=== PATIENT | female | born 1945 | race African-American/Black ===

== ENCOUNTER 2019-02-18 15:34 | Inpatient (IN) ==
[2019-02-18 17:07] LABS: Albumin 3.1 G/DL (3.4-5.0); Bilirubin,Total 0.4 MG/DL (0.2-1.0); Calcium 9.3 MG/DL (8.5-10.1); Osmolality,Calculated 268.4 MOS/KG (273-304); Total Protein 9.1 G/DL (6.4-8.3)
[2019-02-18] MEDS ORDERED: LEVOFLOXACIN INJ 500 MG in PREMIX 1 EACH IV STA (18:18)
[2019-02-18 18:37] LABS: Basophils # 0.1 10*3/uL (0.0-0.2); Basophils % 0.5 % (0.0-0.8); Eosinophils # 0.1 10*3/uL (0.0-0.87); Eosinophils % 0.7 % (0.00-10.9); Hematocrit 46.7 VOL% (35.7-47.0); Immature Granulocytes % 0.5 %; Immature Granulocytes Absolute 0.07 #; Lymphocytes # 3.2 10*3/uL (1.4-4.0); Lymphocytes % 22.2 % (21.3-54.2); Mean Corpuscular HGB Conc 32.1 GM/DL (32-36); Monocytes % 9.7 % (1.7-12.7); Neutrophils % 66.4 % (38.7-73.9); Platelet Count 254 T/CUMM (130-400); Red Blood Count 5.56 MC/CUMM (3.8-5.5); Red Cell Distribution Width 13.9 % (9.3-17.3); White Blood Count 14.3 T/CUMM (4-12)
[2019-02-18] MEDS ORDERED: ACETAMINOPHEN 325 MG TABLET PO PRN (19:59)
[2019-02-18] MEDS ORDERED: GLUCAGON 1 MG VIAL IM PRN ×2 (19:59)
[2019-02-18] MEDS ORDERED: DEXTROSE 50% 25 GM/50 ML VIAL IV PRN (19:59)
[2019-02-18] MEDS ORDERED: ONDANSETRON 4 MG/2 ML VIAL IV PRN (19:59)
[2019-02-18] MEDS ORDERED: DEXTROSE 10% 250 ML BAG IV PRN (19:59)
[2019-02-18] MEDS: SODIUM CHLORIDE 0.9% 1,000 ML IV SCH (21:05)
[2019-02-18] MEDS: INSULIN LISPRO 100 UNIT/ML SUBCUT SCH (23:05)
[2019-02-19] MEDS: ALBUTEROL/IPRATROPIUM 3 ML NEB RESP TX SCH ×4 (00:20→18:30)
[2019-02-19 05:09] LABS: Basophils # 0.1 10*3/uL (0.0-0.2); Basophils % 0.5 % (0.0-0.8); Eosinophils # 0.1 10*3/uL (0.0-0.87); Eosinophils % 0.5 % (0.00-10.9); Hematocrit 40.5 VOL% (35.7-47.0); Hemoglobin 13.1 GM/DL (12.0-16.0); Immature Granulocytes % 0.5 %; Immature Granulocytes Absolute 0.08 #; Lymphocytes # 3.2 10*3/uL (1.4-4.0); Lymphocytes % 20.8 % (21.3-54.2); Mean Corpuscular HGB Conc 32.3 GM/DL (32-36); Monocytes % 10.9 % (1.7-12.7); Neutrophils % 66.8 % (38.7-73.9); Platelet Count 238 T/CUMM (130-400); Red Blood Count 4.82 MC/CUMM (3.8-5.5); Red Cell Distribution Width 13.8 % (9.3-17.3); White Blood Count 15.2 T/CUMM (4-12)
[2019-02-19] MEDS: SODIUM CHLORIDE 0.9% 1,000 ML IV SCH ×2 (05:34→15:38)
[2019-02-19 05:44] LABS: Calcium 8.9 MG/DL (8.5-10.1); Osmolality,Calculated 274.8 MOS/KG (273-304); Risk Ratio 2.28; VLDL CHOLESTEROL 16.2 MG/DL
[2019-02-19] MEDS: PANTOPRAZOLE 40 MG TABLET PO SCH (08:20)
[2019-02-19] MEDS: INSULIN LISPRO 100 UNIT/ML SUBCUT SCH ×4 (08:29→21:06)
[2019-02-19] MEDS ORDERED: guaiFENesin/DM ER 600-30 MG TABLET PO PRN (13:42)
[2019-02-19] MEDS ORDERED: ENOXAPARIN 40 MG/0.4 ML SYRINGE SUBCUT SCH (14:00)
[2019-02-19] MEDS ORDERED: LEVOFLOXACIN INJ 750 MG in PREMIX 1 EACH IV SCH (18:00)
[2019-02-19 18:56] LABS: Apearance,Urine CLEAR (Clear); Bilirubin,Urine Negative (Negative); Blood, Urine Negative (Negative); Glucose,Urine (UA) 50 mg/dL (Negative); Ketones,Urine Negative (Negative); Nitrite,Urine Negative (Negative); Protein,Urine Negative; RBC,Urine <1 /HPF (0-4); Urine Color Straw (Yellow); Urine Specific Gravity 1.011 (1.001-1.035); Urine Urobilinogen < 2.0 EU/DL (0.2-1.0); WBC,Urine <1 /HPF (0-6)
[2019-02-19] MEDS: METOPROLOL TARTRATE 25 MG TABLET PO SCH (21:05)
[2019-02-20] MEDS: ALBUTEROL/IPRATROPIUM 3 ML NEB RESP TX SCH ×2 (00:40→07:30)
[2019-02-20 05:29] LABS: Basophils % 0.3 % (0.0-0.8); Eosinophils # 0.2 10*3/uL (0.0-0.87); Eosinophils % 1.4 % (0.00-10.9); Hematocrit 36.8 VOL% (35.7-47.0); Immature Granulocytes % 0.3 %; Immature Granulocytes Absolute 0.04 #; Lymphocytes # 3.1 10*3/uL (1.4-4.0); Lymphocytes % 26.4 % (21.3-54.2); Mean Corpuscular HGB Conc 32.6 GM/DL (32-36); Mean Corpuscular Volume 83.6 FL (87-102); Mean Platelet Volume 10.2 FL (9.6-12.0); Neutrophils % 61.6 % (38.7-73.9); Platelet Count 253 T/CUMM (130-400); Red Cell Distribution Width 13.7 % (9.3-17.3); White Blood Count 11.9 T/CUMM (4-12)
[2019-02-20] MEDS ORDERED: LEVOTHYROXINE 88 MCG TABLET PO SCH (06:30)
[2019-02-20] MEDS: METOPROLOL TARTRATE 25 MG TABLET PO SCH (08:49)
[2019-02-20] MEDS: PANTOPRAZOLE 40 MG TABLET PO SCH (08:49)
[2019-02-20] MEDS: INSULIN LISPRO 100 UNIT/ML SUBCUT SCH (08:54)
[2019-02-20] MEDS ORDERED: EZETIMIBE 10 MG TABLET PO SCH (09:00)
[2019-02-20] MEDS ORDERED: SERTRALINE 25 MG TABLET PO SCH (09:00)
[2019-02-20 10:14] VITALS: BP 138/74
== END 2019-02-20 11:31 | disposition home or self-care (01) | DRG 194 ==
LOC: N.ED 15:34 → N.EDINP 19:59 → N.5E 20:32
PROVIDERS: ADMIT Internal Medicine; ATTEND Internal Medicine

== ENCOUNTER 2019-08-19 11:47 | Inpatient (IN) ==
[2019-08-19 12:32] LABS: Basophils # 0.1 10*3/uL (0.0-0.2); Basophils % 0.8 % (0.0-0.8); Eosinophils # 0.4 10*3/uL (0.0-0.87); Eosinophils % 3.7 % (0.00-10.9); Hematocrit 45.1 VOL% (35.7-47.0); Hemoglobin 14.1 GM/DL (12.0-16.0); Immature Granulocytes % 0.4 %; Immature Granulocytes Absolute 0.04 #; Lymphocytes # 3.7 10*3/uL (1.4-4.0); Lymphocytes % 33.2 % (21.3-54.2); Mean Corpuscular HGB Conc 31.3 GM/DL (32-36); Mean Corpuscular Volume 83.4 FL (87-102); Mean Platelet Volume 10.1 FL (9.6-12.0); Monocytes % 10.9 % (1.7-12.7); Platelet Count 312 T/CUMM (130-400); Red Blood Count 5.41 MC/CUMM (3.8-5.5); White Blood Count 11.1 T/CUMM (4-12)
[2019-08-19 12:52] LABS: Albumin 3.3 G/DL (3.4-5.0); Calcium 9.6 MG/DL (8.5-10.1); Osmolality,Calculated 270.1 MOS/KG (273-304); Total Protein 8.8 G/DL (6.4-8.3)
[2019-08-19] MEDS ORDERED: ONDANSETRON 4 MG/2 ML VIAL IV PRN (16:09)
[2019-08-19] MEDS ORDERED: NITROGLYCERIN SL 0.4 MG TABLET SL PRN (16:13)
[2019-08-19] MEDS ORDERED: GLUCAGON 1 MG VIAL IM PRN (16:17)
[2019-08-19] MEDS ORDERED: DEXTROSE 10% 250 ML BAG IV PRN (16:17)
[2019-08-19] MEDS: INSULIN LISPRO 100 UNIT/ML SUBCUT SCH ×2 (16:53→21:41)
[2019-08-19 17:54] LABS: Troponin I < 0.015 NG/ML (0.00-0.045)
[2019-08-19] MEDS: ACETAMINOPHEN 325 MG TABLET PO PRN (19:58)
[2019-08-19] MEDS: ALBUTEROL/IPRATROPIUM 3 ML NEB RESP TX SCH (20:50)
[2019-08-19 21:37] LABS: Troponin I < 0.015 NG/ML (0.00-0.045)
[2019-08-19] MEDS: METOPROLOL TARTRATE 25 MG TABLET PO SCH (21:40)
[2019-08-19] MEDS: RANOLAZINE 500 MG TABLET PO SCH (21:41)
[2019-08-19] MEDS ORDERED: MORPHINE 4 MG/1 ML VIAL IV ONE (22:07)
[2019-08-20 00:55] LABS: Apearance,Urine CLEAR (Clear); Bilirubin,Urine Negative (Negative); Blood, Urine Negative (Negative); Glucose,Urine (UA) Negative (Negative); Ketones,Urine Negative (Negative); Nitrite,Urine Negative (Negative); Protein,Urine 30 MG/DL; RBC,Urine 2 /HPF (0-4); Squamous Epithelial Cell,Urine Occasional /HPF (0-10); Urine Color Yellow (Yellow); Urine Specific Gravity > 1.060 (1.001-1.035); WBC,Urine 3 /HPF (0-6)
[2019-08-20] MEDS: ALBUTEROL/IPRATROPIUM 3 ML NEB RESP TX SCH ×4 (01:48→20:40)
[2019-08-20] MEDS: ACETAMINOPHEN 325 MG TABLET PO PRN ×2 (03:05→08:33)
[2019-08-20 05:48] LABS: Risk Ratio 4.41; Thyroid Stimulating Hormone 0.128 uIU/ml (0.358-3.74); VLDL CHOLESTEROL 28.6 MG/DL
[2019-08-20 06:19] LABS: Basophils # 0.1 10*3/uL (0.0-0.2); Basophils % 0.6 % (0.0-0.8); Eosinophils # 0.4 10*3/uL (0.0-0.87); Eosinophils % 3.4 % (0.00-10.9); Hematocrit 39.9 VOL% (35.7-47.0); Hemoglobin 13.1 GM/DL (12.0-16.0); Immature Granulocytes % 0.2 %; Immature Granulocytes Absolute 0.02 #; Lymphocytes # 3.8 10*3/uL (1.4-4.0); Lymphocytes % 33.8 % (21.3-54.2); Mean Corpuscular HGB Conc 32.8 GM/DL (32-36); Mean Corpuscular Volume 80.4 FL (87-102); Mean Platelet Volume 10.7 FL (9.6-12.0); Monocytes % 13.5 % (1.7-12.7); Neutrophils % 48.5 % (38.7-73.9); Platelet Count 275 T/CUMM (130-400); Red Blood Count 4.96 MC/CUMM (3.8-5.5); Red Cell Distribution Width 14.2 % (9.3-17.3); White Blood Count 11.1 T/CUMM (4-12)
[2019-08-20 06:23] LABS: Osmolality,Calculated 270.2 MOS/KG (273-304)
[2019-08-20] MEDS: LEVOTHYROXINE 50 MCG TABLET PO SCH (06:33)
[2019-08-20] MEDS: RANOLAZINE 500 MG TABLET PO SCH ×2 (08:30→21:00)
[2019-08-20] MEDS: LOSARTAN 50 MG TABLET PO SCH (08:31)
[2019-08-20] MEDS: ISOSORBIDE MONONITRATE 60 MG TABLET PO SCH (08:31)
[2019-08-20] MEDS: METOPROLOL TARTRATE 25 MG TABLET PO SCH (08:32)
[2019-08-20] MEDS: hydroCHLOROthiazide 25 MG TABLET PO SCH (08:32)
[2019-08-20] MEDS: SERTRALINE 25 MG TABLET PO SCH (08:33)
[2019-08-20] MEDS: ENOXAPARIN 40 MG/0.4 ML SYRINGE SUBCUT SCH (08:34)
[2019-08-20] MEDS: buPROPion XL 150 MG TABLET PO SCH (08:34)
[2019-08-20] MEDS: PANTOPRAZOLE 40 MG TABLET PO SCH (08:34)
[2019-08-20] MEDS: INSULIN LISPRO 100 UNIT/ML SUBCUT SCH ×4 (09:11→21:01)
[2019-08-20] MEDS: ROSUVASTATIN 20 MG TABLET PO SCH (09:50)
[2019-08-20] MEDS: DORNASE ALFA 2.5 MG/2.5 ML VIAL RESP TX SCH ×2 (11:00→20:47)
[2019-08-20] MEDS: CYANOCOBALAMIN 500 MCG TABLET PO SCH (13:15)
[2019-08-20] MEDS: MEROPENEM 500 MG in SODIUM CHLORIDE 0.9% 100 ML IV SCH ×3 (14:56→23:34)
[2019-08-20] MEDS: METOPROLOL TARTRATE 50 MG TABLET PO SCH (21:00)
[2019-08-21] MEDS: ACETAMINOPHEN 325 MG TABLET PO PRN ×2 (00:10→15:31)
[2019-08-21] MEDS: ALBUTEROL/IPRATROPIUM 3 ML NEB RESP TX SCH ×4 (02:20→20:16)
[2019-08-21] MEDS: MEROPENEM 500 MG in SODIUM CHLORIDE 0.9% 100 ML IV SCH ×3 (05:45→21:43)
[2019-08-21] MEDS: LEVOTHYROXINE 50 MCG TABLET PO SCH (06:32)
[2019-08-21] MEDS: DORNASE ALFA 2.5 MG/2.5 ML VIAL RESP TX SCH ×2 (08:07→20:16)
[2019-08-21] MEDS: CYANOCOBALAMIN 500 MCG TABLET PO SCH (08:38)
[2019-08-21] MEDS: INSULIN LISPRO 100 UNIT/ML SUBCUT SCH ×4 (08:38→21:45)
[2019-08-21] MEDS: PANTOPRAZOLE 40 MG TABLET PO SCH (08:38)
[2019-08-21] MEDS: SERTRALINE 25 MG TABLET PO SCH (08:39)
[2019-08-21] MEDS: ROSUVASTATIN 20 MG TABLET PO SCH (08:39)
[2019-08-21] MEDS: METOPROLOL TARTRATE 50 MG TABLET PO SCH ×2 (08:39→21:45)
[2019-08-21] MEDS: ISOSORBIDE MONONITRATE 60 MG TABLET PO SCH (08:39)
[2019-08-21] MEDS: hydroCHLOROthiazide 25 MG TABLET PO SCH (08:39)
[2019-08-21] MEDS: RANOLAZINE 500 MG TABLET PO SCH ×2 (08:39→21:44)
[2019-08-21] MEDS: LOSARTAN 50 MG TABLET PO SCH (08:39)
[2019-08-21] MEDS: buPROPion XL 150 MG TABLET PO SCH (08:39)
[2019-08-21] MEDS: ENOXAPARIN 40 MG/0.4 ML SYRINGE SUBCUT SCH (08:44)
[2019-08-21] MEDS ORDERED: MAGNESIUM HYDROXIDE SUSP 30 ML UDCUP PO PRN (10:27)
[2019-08-21] MEDS ORDERED: MAGNESIUM HYDROXIDE SUSP 30 ML UDCUP PO ONE (10:27)
[2019-08-21] MEDS ORDERED: ALUM/MAG/SIMETH/LIDO VISC 1:1 30 ML BOTTLE PO ONE (11:43)
[2019-08-22] MEDS: MEROPENEM 500 MG in SODIUM CHLORIDE 0.9% 100 ML IV SCH ×5 (00:40→23:57)
[2019-08-22] MEDS: ALBUTEROL/IPRATROPIUM 3 ML NEB RESP TX SCH ×4 (01:15→20:10)
[2019-08-22 04:28] LABS: Basophils # 0.1 10*3/uL (0.0-0.2); Basophils % 0.7 % (0.0-0.8); Eosinophils # 0.2 10*3/uL (0.0-0.87); Eosinophils % 2.2 % (0.00-10.9); Hematocrit 36.5 VOL% (35.7-47.0); Hemoglobin 11.6 GM/DL (12.0-16.0); Immature Granulocytes % 0.3 %; Immature Granulocytes Absolute 0.03 #; Lymphocytes # 2.9 10*3/uL (1.4-4.0); Lymphocytes % 29.8 % (21.3-54.2); Mean Corpuscular HGB Conc 31.8 GM/DL (32-36); Mean Corpuscular Volume 82.2 FL (87-102); Mean Platelet Volume 10.4 FL (9.6-12.0); Platelet Count 300 T/CUMM (130-400); Red Blood Count 4.44 MC/CUMM (3.8-5.5); Red Cell Distribution Width 13.9 % (9.3-17.3); White Blood Count 9.6 T/CUMM (4-12)
[2019-08-22 05:09] LABS: PT Patient Result 11.1 SECS (9.6-12.2)
[2019-08-22 05:09] LABS: Albumin 2.5 G/DL (3.4-5.0); Bilirubin,Total 1.5 MG/DL (0.2-1.0); Calcium 8.9 MG/DL (8.5-10.1); Osmolality,Calculated 272.4 MOS/KG (273-304); Total Protein 7.7 G/DL (6.4-8.3)
[2019-08-22] MEDS: LEVOTHYROXINE 50 MCG TABLET PO SCH (06:04)
[2019-08-22] MEDS: DORNASE ALFA 2.5 MG/2.5 ML VIAL RESP TX SCH ×2 (06:40→20:15)
[2019-08-22] MEDS: INSULIN LISPRO 100 UNIT/ML SUBCUT SCH ×4 (08:29→21:25)
[2019-08-22] MEDS ORDERED: DIAZEPAM 5 MG TABLET PO ONE (09:45)
[2019-08-22] MEDS ORDERED: POTASSIUM CHLORIDE RIDER 10 MEQ in PREMIX 1 EACH IV PRN (10:42)
[2019-08-22] MEDS: SERTRALINE 25 MG TABLET PO SCH (10:48)
[2019-08-22] MEDS: RANOLAZINE 500 MG TABLET PO SCH ×2 (10:48→21:24)
[2019-08-22] MEDS: METOPROLOL TARTRATE 50 MG TABLET PO SCH ×2 (10:48→21:20)
[2019-08-22] MEDS: CYANOCOBALAMIN 500 MCG TABLET PO SCH (10:48)
[2019-08-22] MEDS: ISOSORBIDE MONONITRATE 60 MG TABLET PO SCH (10:49)
[2019-08-22] MEDS: LOSARTAN 50 MG TABLET PO SCH (10:49)
[2019-08-22] MEDS: hydroCHLOROthiazide 25 MG TABLET PO SCH (10:49)
[2019-08-22] MEDS: PANTOPRAZOLE 40 MG TABLET PO SCH (10:49)
[2019-08-22] MEDS: ROSUVASTATIN 20 MG TABLET PO SCH (10:49)
[2019-08-22] MEDS: buPROPion XL 150 MG TABLET PO SCH (10:50)
[2019-08-23] MEDS: ALBUTEROL/IPRATROPIUM 3 ML NEB RESP TX SCH ×4 (01:11→19:29)
[2019-08-23 05:00] LABS: Basophils # 0.1 10*3/uL (0.0-0.2); Basophils % 0.7 % (0.0-0.8); Eosinophils # 0.3 10*3/uL (0.0-0.87); Eosinophils % 3.2 % (0.00-10.9); Hematocrit 36.9 VOL% (35.7-47.0); Hemoglobin 11.6 GM/DL (12.0-16.0); Immature Granulocytes % 0.2 %; Immature Granulocytes Absolute 0.02 #; Lymphocytes # 2.8 10*3/uL (1.4-4.0); Lymphocytes % 31.5 % (21.3-54.2); Mean Corpuscular HGB Conc 31.4 GM/DL (32-36); Mean Corpuscular Volume 82.4 FL (87-102); Mean Platelet Volume 10.4 FL (9.6-12.0); Monocytes % 9.6 % (1.7-12.7); Neutrophils % 54.8 % (38.7-73.9); Platelet Count 306 T/CUMM (130-400); Red Blood Count 4.48 MC/CUMM (3.8-5.5); Red Cell Distribution Width 13.8 % (9.3-17.3); White Blood Count 8.8 T/CUMM (4-12)
[2019-08-23 05:35] LABS: Albumin 2.4 G/DL (3.4-5.0); Bilirubin,Total 0.6 MG/DL (0.2-1.0); Calcium 8.8 MG/DL (8.5-10.1); Osmolality,Calculated 274.2 MOS/KG (273-304); Total Protein 7.3 G/DL (6.4-8.3)
[2019-08-23 05:48] LABS: PT Patient Result 10.8 SECS (9.6-12.2)
[2019-08-23] MEDS: MEROPENEM 500 MG in SODIUM CHLORIDE 0.9% 100 ML IV SCH ×3 (05:51→18:13)
[2019-08-23] MEDS: LEVOTHYROXINE 50 MCG TABLET PO SCH (06:19)
[2019-08-23] MEDS ORDERED: MIDAZOLAM 2 MG/2 ML VIAL ONE (07:32)
[2019-08-23] MEDS ORDERED: diphenhydrAMINE 50 MG/1 ML VIAL IM ONE (08:00)
[2019-08-23] MEDS ORDERED: BENZONATATE 100 MG CAPSULE PO ONE (08:00)
[2019-08-23] MEDS ORDERED: MEPERIDINE 50 MG/1 ML VIAL IM ONE (08:00)
[2019-08-23] MEDS: INSULIN LISPRO 100 UNIT/ML SUBCUT SCH ×4 (08:14→22:57)
[2019-08-23] MEDS ORDERED: LIDOCAINE 2% 20 ML VIAL RESP TX ONE (08:30)
[2019-08-23] MEDS ORDERED: LIDOCAINE 1% 20 ML VIAL MISC INJ ONE (08:30)
[2019-08-23] MEDS ORDERED: LIDOCAINE 2% VISCOUS 100 ML BOTTLE SWISH/SPIT ONE (08:30)
[2019-08-23] MEDS: DORNASE ALFA 2.5 MG/2.5 ML VIAL RESP TX SCH ×2 (08:51→19:29)
[2019-08-23] MEDS: buPROPion XL 150 MG TABLET PO SCH (10:19)
[2019-08-23] MEDS: SERTRALINE 25 MG TABLET PO SCH (10:19)
[2019-08-23] MEDS: CYANOCOBALAMIN 500 MCG TABLET PO SCH (10:19)
[2019-08-23] MEDS: ISOSORBIDE MONONITRATE 60 MG TABLET PO SCH (12:04)
[2019-08-23] MEDS: ROSUVASTATIN 20 MG TABLET PO SCH (12:04)
[2019-08-23] MEDS: METOPROLOL TARTRATE 50 MG TABLET PO SCH ×2 (12:04→22:17)
[2019-08-23] MEDS: hydroCHLOROthiazide 25 MG TABLET PO SCH (12:04)
[2019-08-23] MEDS: LOSARTAN 50 MG TABLET PO SCH (12:04)
[2019-08-23] MEDS: RANOLAZINE 500 MG TABLET PO SCH ×2 (12:04→22:16)
[2019-08-23] MEDS: PANTOPRAZOLE 40 MG TABLET PO SCH (12:05)
[2019-08-23] MEDS: FLUCONAZOLE INJ 100 MG in IV BAG 1 EACH IV SCH (12:48)
[2019-08-24] MEDS: MEROPENEM 500 MG in SODIUM CHLORIDE 0.9% 100 ML IV SCH ×4 (00:11→17:26)
[2019-08-24] MEDS: ALBUTEROL/IPRATROPIUM 3 ML NEB RESP TX SCH ×4 (00:28→20:05)
[2019-08-24] MEDS: DORNASE ALFA 2.5 MG/2.5 ML VIAL RESP TX SCH ×2 (07:50→20:05)
[2019-08-24] MEDS: INSULIN LISPRO 100 UNIT/ML SUBCUT SCH ×4 (09:36→22:39)
[2019-08-24] MEDS: CYANOCOBALAMIN 500 MCG TABLET PO SCH (09:41)
[2019-08-24] MEDS: PANTOPRAZOLE 40 MG TABLET PO SCH (09:41)
[2019-08-24] MEDS: METOPROLOL TARTRATE 50 MG TABLET PO SCH ×2 (09:41→22:06)
[2019-08-24] MEDS: SERTRALINE 25 MG TABLET PO SCH (09:42)
[2019-08-24] MEDS: hydroCHLOROthiazide 25 MG TABLET PO SCH (09:42)
[2019-08-24] MEDS: LEVOTHYROXINE 50 MCG TABLET PO SCH (09:42)
[2019-08-24] MEDS: ROSUVASTATIN 20 MG TABLET PO SCH (09:42)
[2019-08-24] MEDS: LOSARTAN 50 MG TABLET PO SCH (09:42)
[2019-08-24] MEDS: buPROPion XL 150 MG TABLET PO SCH (09:42)
[2019-08-24] MEDS: RANOLAZINE 500 MG TABLET PO SCH ×2 (09:42→22:08)
[2019-08-24] MEDS: ISOSORBIDE MONONITRATE 60 MG TABLET PO SCH (09:42)
[2019-08-24] MEDS ORDERED: SODIUM CHLORIDE 0.9% 500 ML IV ONE (13:46)
[2019-08-24] MEDS: FLUCONAZOLE INJ 100 MG in IV BAG 1 EACH IV SCH (15:10)
[2019-08-24] MEDS: ACETAMINOPHEN 325 MG TABLET PO PRN (19:12)
[2019-08-25] MEDS: MEROPENEM 500 MG in SODIUM CHLORIDE 0.9% 100 ML IV SCH ×5 (01:21→23:24)
[2019-08-25] MEDS: ALBUTEROL/IPRATROPIUM 3 ML NEB RESP TX SCH ×4 (01:36→20:05)
[2019-08-25] MEDS: LEVOTHYROXINE 50 MCG TABLET PO SCH (07:23)
[2019-08-25] MEDS: DORNASE ALFA 2.5 MG/2.5 ML VIAL RESP TX SCH ×2 (08:07→20:13)
[2019-08-25] MEDS: INSULIN LISPRO 100 UNIT/ML SUBCUT SCH ×4 (08:32→21:08)
[2019-08-25] MEDS: ISOSORBIDE MONONITRATE 60 MG TABLET PO SCH (08:35)
[2019-08-25] MEDS: CYANOCOBALAMIN 500 MCG TABLET PO SCH (08:35)
[2019-08-25] MEDS: RANOLAZINE 500 MG TABLET PO SCH ×2 (08:35→21:13)
[2019-08-25] MEDS: METOPROLOL TARTRATE 50 MG TABLET PO SCH ×2 (08:36→21:13)
[2019-08-25] MEDS: hydroCHLOROthiazide 25 MG TABLET PO SCH (08:36)
[2019-08-25] MEDS: PANTOPRAZOLE 40 MG TABLET PO SCH (08:36)
[2019-08-25] MEDS: ROSUVASTATIN 20 MG TABLET PO SCH (08:36)
[2019-08-25] MEDS: SERTRALINE 25 MG TABLET PO SCH (08:36)
[2019-08-25] MEDS: buPROPion XL 150 MG TABLET PO SCH (08:36)
[2019-08-25] MEDS: FLUCONAZOLE INJ 100 MG in IV BAG 1 EACH IV SCH (12:32)
[2019-08-26] MEDS: ALBUTEROL/IPRATROPIUM 3 ML NEB RESP TX SCH ×4 (00:20→21:14)
[2019-08-26 05:05] LABS: Basophils # 0.1 10*3/uL (0.0-0.2); Basophils % 0.5 % (0.0-0.8); Eosinophils # 0.6 10*3/uL (0.0-0.87); Eosinophils % 6.5 % (0.00-10.9); Hemoglobin 11.4 GM/DL (12.0-16.0); Immature Granulocytes % 0.4 %; Immature Granulocytes Absolute 0.04 #; Lymphocytes # 3.4 10*3/uL (1.4-4.0); Lymphocytes % 35.8 % (21.3-54.2); Mean Corpuscular HGB Conc 30.8 GM/DL (32-36); Mean Corpuscular Volume 85.1 FL (87-102); Mean Platelet Volume 9.5 FL (9.6-12.0); Monocytes % 9.1 % (1.7-12.7); Neutrophils % 47.7 % (38.7-73.9); Platelet Count 327 T/CUMM (130-400); Red Blood Count 4.35 MC/CUMM (3.8-5.5); White Blood Count 9.5 T/CUMM (4-12)
[2019-08-26 05:17] LABS: Calcium 9.4 MG/DL (8.5-10.1)
[2019-08-26] MEDS: MEROPENEM 500 MG in SODIUM CHLORIDE 0.9% 100 ML IV SCH ×3 (06:18→17:58)
[2019-08-26] MEDS: DORNASE ALFA 2.5 MG/2.5 ML VIAL RESP TX SCH ×2 (07:52→21:14)
[2019-08-26] MEDS: buPROPion XL 150 MG TABLET PO SCH (08:56)
[2019-08-26] MEDS: hydroCHLOROthiazide 25 MG TABLET PO SCH (08:57)
[2019-08-26] MEDS: ROSUVASTATIN 20 MG TABLET PO SCH (08:57)
[2019-08-26] MEDS: ISOSORBIDE MONONITRATE 60 MG TABLET PO SCH (08:58)
[2019-08-26] MEDS: RANOLAZINE 500 MG TABLET PO SCH ×2 (08:58→23:04)
[2019-08-26] MEDS: METOPROLOL TARTRATE 50 MG TABLET PO SCH ×2 (08:58→23:03)
[2019-08-26] MEDS: SERTRALINE 25 MG TABLET PO SCH (08:58)
[2019-08-26] MEDS: PANTOPRAZOLE 40 MG TABLET PO SCH (08:59)
[2019-08-26] MEDS: CYANOCOBALAMIN 500 MCG TABLET PO SCH (08:59)
[2019-08-26] MEDS: LEVOTHYROXINE 50 MCG TABLET PO SCH (08:59)
[2019-08-26] MEDS: LOSARTAN 50 MG TABLET PO SCH (09:00)
[2019-08-26] MEDS: INSULIN LISPRO 100 UNIT/ML SUBCUT SCH ×4 (09:00→23:03)
[2019-08-26] MEDS: FLUCONAZOLE INJ 100 MG in IV BAG 1 EACH IV SCH (13:02)
[2019-08-26 16:26] LABS: Apearance,Urine CLEAR (Clear); Bilirubin,Urine Negative (Negative); Blood, Urine Negative (Negative); Glucose,Urine (UA) Negative (Negative); Ketones,Urine Negative (Negative); Nitrite,Urine Negative (Negative); Protein,Urine Negative; Squamous Epithelial Cell,Urine Occasional /HPF (0-10); Urine Color Yellow (Yellow); Urine Specific Gravity 1.015 (1.001-1.035); Urine Urobilinogen < 2.0 EU/DL (0.2-1.0); WBC,Urine <1 /HPF (0-6)
[2019-08-27] MEDS: MEROPENEM 500 MG in SODIUM CHLORIDE 0.9% 100 ML IV SCH ×2 (00:54→06:58)
[2019-08-27] MEDS: ALBUTEROL/IPRATROPIUM 3 ML NEB RESP TX SCH ×3 (01:15→13:52)
[2019-08-27 05:13] LABS: Basophils # 0.1 10*3/uL (0.0-0.2); Basophils % 0.6 % (0.0-0.8); Eosinophils # 0.7 10*3/uL (0.0-0.87); Eosinophils % 8.6 % (0.00-10.9); Hematocrit 36.1 VOL% (35.7-47.0); Hemoglobin 11.5 GM/DL (12.0-16.0); Immature Granulocytes % 0.4 %; Immature Granulocytes Absolute 0.03 #; Lymphocytes # 3.2 10*3/uL (1.4-4.0); Mean Corpuscular HGB Conc 31.9 GM/DL (32-36); Mean Corpuscular Volume 81.3 FL (87-102); Mean Platelet Volume 10.2 FL (9.6-12.0); Monocytes % 12.2 % (1.7-12.7); Neutrophils % 39.2 % (38.7-73.9); Platelet Count 351 T/CUMM (130-400); Red Blood Count 4.44 MC/CUMM (3.8-5.5); White Blood Count 8.1 T/CUMM (4-12)
[2019-08-27 05:28] LABS: Calcium 9.1 MG/DL (8.5-10.1); Osmolality,Calculated 268.2 MOS/KG (273-304)
[2019-08-27] MEDS: LEVOTHYROXINE 50 MCG TABLET PO SCH (07:40)
[2019-08-27] MEDS: DORNASE ALFA 2.5 MG/2.5 ML VIAL RESP TX SCH (07:57)
[2019-08-27] MEDS: INSULIN LISPRO 100 UNIT/ML SUBCUT SCH ×2 (08:18→13:35)
[2019-08-27] MEDS: PANTOPRAZOLE 40 MG TABLET PO SCH (09:42)
[2019-08-27] MEDS: RANOLAZINE 500 MG TABLET PO SCH (09:42)
[2019-08-27] MEDS: LOSARTAN 50 MG TABLET PO SCH (09:42)
[2019-08-27] MEDS: ROSUVASTATIN 20 MG TABLET PO SCH (09:42)
[2019-08-27] MEDS: hydroCHLOROthiazide 25 MG TABLET PO SCH (09:42)
[2019-08-27] MEDS: buPROPion XL 150 MG TABLET PO SCH (09:43)
[2019-08-27] MEDS: ISOSORBIDE MONONITRATE 60 MG TABLET PO SCH (09:43)
[2019-08-27] MEDS: METOPROLOL TARTRATE 50 MG TABLET PO SCH (09:43)
[2019-08-27] MEDS: SERTRALINE 25 MG TABLET PO SCH (09:43)
[2019-08-27] MEDS: CYANOCOBALAMIN 500 MCG TABLET PO SCH (09:43)
[2019-08-27 12:01] VITALS: BP 126/67
== END 2019-08-27 14:35 | disposition home health service (06) | DRG 180 ==
LOC: N.ED 11:47 → N.EDINP 11:47 → N.2W 15:19 → SUATTDRO 08-20 13:43 → N.5E 08-23 14:21
PROVIDERS: ADMIT Internal Medicine; ATTEND Internal Medicine Geriatric Medicine

== ENCOUNTER 2020-04-21 11:18 | Inpatient (IN) ==
[2020-04-21] MEDS ORDERED: ASPIRIN 325 MG TABLET PO STA (12:29)
[2020-04-21 12:48] LABS: Basophils % 0.3 % (0.0-0.8); Eosinophils % 0.2 % (0.00-10.9); Hematocrit 42.5 VOL% (35.7-47.0); Hemoglobin 13.5 GM/DL (12.0-16.0); Immature Granulocytes % 0.3 %; Immature Granulocytes Absolute 0.03 #; Lymphocytes # 0.8 10*3/uL (1.4-4.0); Lymphocytes % 8.4 % (21.3-54.2); Mean Corpuscular HGB Conc 31.8 GM/DL (32-36); Mean Corpuscular Volume 82.2 FL (87-102); Mean Platelet Volume 9.8 FL (9.6-12.0); Monocytes % 7.9 % (1.7-12.7); Neutrophils % 82.9 % (38.7-73.9); Platelet Count 376 T/CUMM (130-400); Red Blood Count 5.17 MC/CUMM (3.8-5.5); Red Cell Distribution Width 15.2 % (9.3-17.3); White Blood Count 9.4 T/CUMM (4-12)
[2020-04-21 13:16] LABS: Albumin 2.4 G/DL (3.4-5.0); Bilirubin,Total 0.8 MG/DL (0.2-1.0); Calcium 10.2 MG/DL (8.5-10.1); Osmolality,Calculated 281.7 MOS/KG (273-304); Total Protein 6.9 G/DL (6.4-8.3)
[2020-04-21] MEDS ORDERED: LACTULOSE 20 GM/30 ML UDCUP PO PRN (15:17)
[2020-04-21] MEDS ORDERED: GLUCAGON 1 MG VIAL IM PRN (15:17)
[2020-04-21] MEDS ORDERED: MORPHINE 4 MG/1 ML VIAL IV PRN (15:17)
[2020-04-21] MEDS ORDERED: ONDANSETRON 4 MG/2 ML VIAL IV PRN (15:17)
[2020-04-21] MEDS ORDERED: DEXTROSE 50% 25 GM/50 ML VIAL IV PRN (15:17)
[2020-04-21] MEDS ORDERED: hydrALAZINE 20 MG/1 ML VIAL IV PRN (15:17)
[2020-04-21] MEDS ORDERED: ACETAMINOPHEN 325 MG TABLET PO PRN (15:17)
[2020-04-21] MEDS ORDERED: SODIUM CHLORIDE 0.9% 1,000 ML IV SCH (15:30)
[2020-04-21] MEDS ORDERED: NITROGLYCERIN SL 0.4 MG TABLET SL PRN (15:39)
[2020-04-21] MEDS ORDERED: predniSONE 10 MG TABLET PO SCH (16:00)
[2020-04-21] MEDS: fentaNYL 25 MCG/HR PATCH TRANSDERM SCH (17:02)
[2020-04-21] MEDS: INSULIN REGULAR 100 UNIT/ML SUBCUT SCH ×2 (17:56→20:47)
[2020-04-21] MEDS: methylPREDNISolone SOD SUC 40 MG/1 ML VIAL IV SCH (18:06)
[2020-04-21] MEDS: ENOXAPARIN 40 MG/0.4 ML SYRINGE SUBCUT SCH (18:06)
[2020-04-21] MEDS: PIPERACILLIN/TAZOBACTAM 3,375 MG in SODIUM CHLORIDE 0.9% 100 ML IV SCH (18:07)
[2020-04-21] MEDS: PANTOPRAZOLE 40 MG TABLET PO SCH (18:20)
[2020-04-21] MEDS: ALBUTEROL/IPRATROPIUM 3 ML NEB RESP TX SCH (20:01)
[2020-04-21] MEDS: INSULIN GLARGINE 100 UNIT/ML SUBCUT SCH (20:48)
[2020-04-22] MEDS: PIPERACILLIN/TAZOBACTAM 3,375 MG in SODIUM CHLORIDE 0.9% 100 ML IV SCH ×4 (00:06→23:40)
[2020-04-22] MEDS: ALBUTEROL/IPRATROPIUM 3 ML NEB RESP TX SCH ×4 (01:23→19:23)
[2020-04-22] MEDS: methylPREDNISolone SOD SUC 40 MG/1 ML VIAL IV SCH (05:38)
[2020-04-22 06:17] LABS: Basophils % 0.4 % (0.0-0.8); Hematocrit 36.3 VOL% (35.7-47.0); Hemoglobin 11.6 GM/DL (12.0-16.0); Immature Granulocytes % 0.1 %; Immature Granulocytes Absolute 0.01 #; Lymphocytes # 0.4 10*3/uL (1.4-4.0); Mean Corpuscular Volume 80.8 FL (87-102); Mean Platelet Volume 9.9 FL (9.6-12.0); Monocytes % 5.8 % (1.7-12.7); Neutrophils % 87.7 % (38.7-73.9); Platelet Count 315 T/CUMM (130-400); Red Blood Count 4.49 MC/CUMM (3.8-5.5); Red Cell Distribution Width 15.1 % (9.3-17.3); White Blood Count 7.4 T/CUMM (4-12)
[2020-04-22 06:43] LABS: Bilirubin,Total 0.5 MG/DL (0.2-1.0); Calcium 10.1 MG/DL (8.5-10.1); Osmolality,Calculated 285.7 MOS/KG (273-304); Risk Ratio 3.97; Thyroid Stimulating Hormone 0.058 uIU/ml (0.358-3.74)
[2020-04-22] MEDS: INSULIN REGULAR 100 UNIT/ML SUBCUT SCH ×4 (08:29→21:18)
[2020-04-22] MEDS: hydroCHLOROthiazide 25 MG TABLET PO SCH (08:31)
[2020-04-22] MEDS: SERTRALINE 25 MG TABLET PO SCH (08:31)
[2020-04-22] MEDS: buPROPion XL 150 MG TABLET PO SCH (08:32)
[2020-04-22] MEDS: LOSARTAN 50 MG TABLET PO SCH (08:32)
[2020-04-22] MEDS: PANTOPRAZOLE 40 MG TABLET PO SCH (08:32)
[2020-04-22] MEDS ORDERED: amLODIPine 5 MG TABLET PO ONE (09:09)
[2020-04-22 09:48] LABS: INR 1.1
[2020-04-22 10:08] LABS: Albumin 2.1 G/DL (3.4-5.0); Total Protein 7.4 G/DL (6.4-8.3)
[2020-04-22 15:33] LABS: Lymphocytes,Pleural Fluid 86 %; Monocytes,Pleural Fluid 7 %; Neutrophils,Pleural Fluid 7 %
[2020-04-22 15:35] LABS: RBC,Pleural Fluid 9787 T/CUMM
[2020-04-22 15:50] LABS: Amylase,Body Fluid 20 U/L; Glucose,Pleural Fluid 271 MG/DL; LDH,Body Fluid 529 U/L; Total Protein,Body Fluid 4.8 G/DL; Triglycerides,Body Fluid 40 MG/DL
[2020-04-22] MEDS: ENOXAPARIN 40 MG/0.4 ML SYRINGE SUBCUT SCH (17:20)
[2020-04-22] MEDS: INSULIN GLARGINE 100 UNIT/ML SUBCUT SCH (21:19)
[2020-04-23] MEDS: ALBUTEROL/IPRATROPIUM 3 ML NEB RESP TX SCH ×4 (00:20→20:15)
[2020-04-23] MEDS: PANTOPRAZOLE 40 MG TABLET PO SCH (08:23)
[2020-04-23] MEDS: predniSONE 10 MG TABLET PO SCH (08:23)
[2020-04-23] MEDS: hydroCHLOROthiazide 25 MG TABLET PO SCH (08:25)
[2020-04-23] MEDS: PIPERACILLIN/TAZOBACTAM 3,375 MG in SODIUM CHLORIDE 0.9% 100 ML IV SCH ×2 (08:25→17:14)
[2020-04-23] MEDS: SERTRALINE 25 MG TABLET PO SCH (08:27)
[2020-04-23] MEDS: LOSARTAN 50 MG TABLET PO SCH (08:27)
[2020-04-23] MEDS: buPROPion XL 150 MG TABLET PO SCH (08:27)
[2020-04-23] MEDS: INSULIN REGULAR 100 UNIT/ML SUBCUT SCH ×4 (09:11→21:42)
[2020-04-23] MEDS: ENOXAPARIN 40 MG/0.4 ML SYRINGE SUBCUT SCH (17:14)
[2020-04-23] MEDS: INSULIN GLARGINE 100 UNIT/ML SUBCUT SCH (21:41)
[2020-04-24] MEDS: PIPERACILLIN/TAZOBACTAM 3,375 MG in SODIUM CHLORIDE 0.9% 100 ML IV SCH ×2 (01:08→08:38)
[2020-04-24] MEDS: ALBUTEROL/IPRATROPIUM 3 ML NEB RESP TX SCH ×2 (01:46→07:50)
[2020-04-24 05:18] LABS: Basophils % 0.2 % (0.0-0.8); Eosinophils % 0.3 % (0.00-10.9); Hematocrit 31.9 VOL% (35.7-47.0); Hemoglobin 10.1 GM/DL (12.0-16.0); Immature Granulocytes % 0.5 %; Immature Granulocytes Absolute 0.05 #; Lymphocytes # 0.5 10*3/uL (1.4-4.0); Lymphocytes % 4.4 % (21.3-54.2); Mean Corpuscular HGB Conc 31.7 GM/DL (32-36); Mean Corpuscular Volume 82.2 FL (87-102); Mean Platelet Volume 9.9 FL (9.6-12.0); Monocytes % 10.8 % (1.7-12.7); Neutrophils % 83.8 % (38.7-73.9); Platelet Count 291 T/CUMM (130-400); Red Blood Count 3.88 MC/CUMM (3.8-5.5); Red Cell Distribution Width 15.4 % (9.3-17.3); White Blood Count 10.1 T/CUMM (4-12)
[2020-04-24 05:42] LABS: Osmolality,Calculated 280.3 MOS/KG (273-304)
[2020-04-24 06:16] LABS: Band Neutrophils 4 % (0-10); Eosinophils 1 % (0-10); Hypersegmented Neutrophil Few; Lymphocytes 5 % (20-55); Platelet Estimate Normal; Segmented Neutrophils 81 % (50-85); Total Cells Counted 100
[2020-04-24 06:17] LABS: Anisocytosis 1+; Poikilocytosis Slight; Target Cells Slight
[2020-04-24] MEDS: INSULIN REGULAR 100 UNIT/ML SUBCUT SCH ×2 (08:23→11:30)
[2020-04-24] MEDS: fentaNYL 25 MCG/HR PATCH TRANSDERM SCH (08:24)
[2020-04-24] MEDS: LOSARTAN 50 MG TABLET PO SCH (08:29)
[2020-04-24] MEDS: POTASSIUM CHLORIDE 20 MEQ TABLET PO SCH ×2 (08:29→11:33)
[2020-04-24] MEDS: SERTRALINE 25 MG TABLET PO SCH (08:29)
[2020-04-24] MEDS: buPROPion XL 150 MG TABLET PO SCH (08:29)
[2020-04-24] MEDS: predniSONE 10 MG TABLET PO SCH (08:29)
[2020-04-24] MEDS: hydroCHLOROthiazide 25 MG TABLET PO SCH (08:29)
[2020-04-24] MEDS: PANTOPRAZOLE 40 MG TABLET PO SCH (08:29)
[2020-04-24 11:46] VITALS: BP 113/65
[2020-04-24] MEDS ORDERED: HEPARIN LOCK FLUSH 500 UNIT/5 ML SYRINGE IV ONE (12:44)
== END 2020-04-24 13:30 | DRG 194 ==
LOC: N.EDINP 11:18 → N.ED 11:18 → N.4E 16:35 → SUATTDRO 04-23 16:36
PROVIDERS: ADMIT Internal Medicine; ATTEND Internal Medicine

== ENCOUNTER 2020-04-25 00:18 | Inpatient (IN) ==
[2020-04-25 00:49] LABS: Basophils % 0.2 % (0.0-0.8); Eosinophils % 0.3 % (0.00-10.9); Hematocrit 35.5 VOL% (35.7-47.0); Hemoglobin 11.3 GM/DL (12.0-16.0); Immature Granulocytes % 0.9 %; Immature Granulocytes Absolute 0.09 #; Lymphocytes # 0.7 10*3/uL (1.4-4.0); Lymphocytes % 6.4 % (21.3-54.2); Mean Corpuscular HGB Conc 31.8 GM/DL (32-36); Mean Corpuscular Volume 82.6 FL (87-102); Mean Platelet Volume 9.8 FL (9.6-12.0); Monocytes % 5.6 % (1.7-12.7); Neutrophils % 86.6 % (38.7-73.9); Platelet Count 292 T/CUMM (130-400); Red Cell Distribution Width 15.6 % (9.3-17.3); White Blood Count 10.5 T/CUMM (4-12)
[2020-04-25 00:57] LABS: INR 1.1; PT Patient Result 11.8 SECS (9.8-11.9); Partial Thromboplastin Time 31.1 SECS (23.9-33.8)
[2020-04-25 01:02] LABS: Albumin 2.2 G/DL (3.4-5.0); Bilirubin,Total 0.4 MG/DL (0.2-1.0); Osmolality,Calculated 272.8 MOS/KG (273-304); Total Protein 7.3 G/DL (6.4-8.3)
[2020-04-25 01:03] LABS: Bacteria,Urine Occasional /HPF (Few); Bilirubin,Urine Negative (Negative); Blood, Urine Negative (Negative); Glucose,Urine (UA) Negative (Negative); Ketones,Urine Negative (Negative); Mucus,Urine Occasional /LPF (Occasional); Nitrite,Urine Negative (Negative); Protein,Urine Negative; RBC,Urine 1 /HPF (0-4); Urine Appearance CLEAR (Clear); Urine Color Yellow (Yellow); Urine Specific Gravity 1.017 (1.001-1.035); WBC,Urine 1 /HPF (0-6)
[2020-04-25] MEDS ORDERED: DEXTROSE 50% 25 GM/50 ML VIAL IV STA (01:08)
[2020-04-25] MEDS ORDERED: DEXTROSE 50% 25 GM/50 ML SYRINGE IV ONE ×2 (01:09→03:14)
[2020-04-25] MEDS ORDERED: ALBUTEROL/IPRATROPIUM 3 ML NEB RESP TX PRN (02:41)
[2020-04-25] MEDS ORDERED: hydrALAZINE 20 MG/1 ML VIAL IV PRN (02:41)
[2020-04-25] MEDS ORDERED: diphenhydrAMINE CAP 25 MG CAPSULE PO PRN (02:41)
[2020-04-25] MEDS ORDERED: MORPHINE 4 MG/1 ML VIAL IV PRN (02:41)
[2020-04-25] MEDS ORDERED: guaiFENesin/DM ER 600-30 MG TABLET PO PRN (02:41)
[2020-04-25] MEDS ORDERED: NICOTINE 21 MG/24 HR PATCH TRANSDERM PRN (02:41)
[2020-04-25] MEDS: DEXTROSE 50% 25 GM/50 ML VIAL IV PRN ×5 (03:17→15:55)
[2020-04-25] MEDS: DEXT 5% NACL 0.9% KCL 20 MEQ 20 MEQ/1,000 ML BAG IV SCH ×2 (07:55→20:15)
[2020-04-25] MEDS ORDERED: GLUCAGON 1 MG VIAL IM PRN (16:23)
[2020-04-25] MEDS ORDERED: methylPREDNISolone SOD SUC 125 MG/2 ML VIAL IV ONE (16:42)
[2020-04-25] MEDS: HYDROCORTISONE 100 MG VIAL IV SCH ×2 (16:49→22:44)
[2020-04-25 18:35] LABS: Albumin 1.9 G/DL (3.4-5.0); Bilirubin,Total 0.5 MG/DL (0.2-1.0); Calcium 9.2 MG/DL (8.5-10.1); Osmolality,Calculated 275.8 MOS/KG (273-304); Total Protein 6.6 G/DL (6.4-8.3)
[2020-04-26] MEDS: HYDROCORTISONE 100 MG VIAL IV SCH ×4 (04:45→19:29)
[2020-04-26 06:13] LABS: Basophils % 0.1 % (0.0-0.8); Hematocrit 31.4 VOL% (35.7-47.0); Hemoglobin 9.8 GM/DL (12.0-16.0); Immature Granulocytes % 0.6 %; Immature Granulocytes Absolute 0.06 #; Lymphocytes # 0.3 10*3/uL (1.4-4.0); Lymphocytes % 2.8 % (21.3-54.2); Mean Corpuscular HGB Conc 31.2 GM/DL (32-36); Mean Corpuscular Volume 83.5 FL (87-102); Mean Platelet Volume 10.5 FL (9.6-12.0); Monocytes % 1.2 % (1.7-12.7); Neutrophils % 95.3 % (38.7-73.9); Platelet Count 255 T/CUMM (130-400); Red Blood Count 3.76 MC/CUMM (3.8-5.5); Red Cell Distribution Width 15.7 % (9.3-17.3); White Blood Count 10.5 T/CUMM (4-12)
[2020-04-26 06:38] LABS: Calcium 9.4 MG/DL (8.5-10.1)
[2020-04-26 07:18] LABS: Hypochromasia 1+; Lymphocytes 2 % (20-55); Microcytosis 1+; Segmented Neutrophils 96 % (50-85); Total Cells Counted 100
[2020-04-26 07:19] LABS: Acanthocytes Few; Ovalocytes Slight; Platelet Estimate Normal
[2020-04-26] MEDS: DEXT 5% NACL 0.9% KCL 20 MEQ 20 MEQ/1,000 ML BAG IV SCH (07:25)
[2020-04-26] MEDS ORDERED: tiZANidine 4 MG TABLET PO PRN (12:08)
[2020-04-26] MEDS: RANOLAZINE 500 MG TABLET PO SCH (12:30)
[2020-04-26] MEDS: buPROPion XL 150 MG TABLET PO SCH (12:30)
[2020-04-26] MEDS: GABAPENTIN 300 MG CAPSULE PO SCH (12:30)
[2020-04-26] MEDS: SERTRALINE 25 MG TABLET PO SCH (12:30)
[2020-04-26] MEDS: fentaNYL 25 MCG/HR PATCH TRANSDERM SCH (12:31)
[2020-04-26] MEDS: ALBUTEROL/IPRATROPIUM 3 ML NEB RESP TX SCH ×2 (13:40→19:48)
[2020-04-27] MEDS: ALBUTEROL/IPRATROPIUM 3 ML NEB RESP TX SCH ×4 (01:16→19:36)
[2020-04-27] MEDS: traMADol 50 MG TABLET PO PRN ×2 (03:46→20:23)
[2020-04-27] MEDS: HYDROCORTISONE 100 MG VIAL IV SCH ×3 (03:56→18:02)
[2020-04-27 06:53] LABS: Basophils % 0.1 % (0.0-0.8); Eosinophils % 0.2 % (0.00-10.9); Hematocrit 30.1 VOL% (35.7-47.0); Hemoglobin 9.3 GM/DL (12.0-16.0); Immature Granulocytes % 0.6 %; Immature Granulocytes Absolute 0.07 #; Lymphocytes # 0.3 10*3/uL (1.4-4.0); Lymphocytes % 2.9 % (21.3-54.2); Mean Corpuscular HGB Conc 30.9 GM/DL (32-36); Mean Corpuscular Volume 84.1 FL (87-102); Mean Platelet Volume 10.1 FL (9.6-12.0); Monocytes % 8.6 % (1.7-12.7); Neutrophils % 87.6 % (38.7-73.9); Platelet Count 271 T/CUMM (130-400); Red Blood Count 3.58 MC/CUMM (3.8-5.5); Red Cell Distribution Width 15.8 % (9.3-17.3); White Blood Count 11.6 T/CUMM (4-12)
[2020-04-27 07:00] LABS: Calcium 9.7 MG/DL (8.5-10.1); Osmolality,Calculated 284.1 MOS/KG (273-304)
[2020-04-27 07:11] LABS: Free T4 (Free Thyroxine) 1.23 NG/DL (0.76-1.46); Thyroid Stimulating Hormone 0.099 uIU/ml (0.358-3.74)
[2020-04-27 07:20] LABS: Hypochromasia 1+; Lymphocytes 3 % (20-55); Microcytosis 1+; Ovalocytes Slight; Platelet Estimate Adequate; Segmented Neutrophils 85 % (50-85); Total Cells Counted 100
[2020-04-27] MEDS: GABAPENTIN 300 MG CAPSULE PO SCH (09:34)
[2020-04-27] MEDS: SERTRALINE 25 MG TABLET PO SCH (09:35)
[2020-04-27] MEDS: RANOLAZINE 500 MG TABLET PO SCH (09:35)
[2020-04-27] MEDS: ROSUVASTATIN 20 MG TABLET PO SCH (09:35)
[2020-04-27 09:53] LABS: INR 1.1; PT Patient Result 11.3 SECS (9.8-11.9)
[2020-04-27 11:40] LABS: Amylase,Body Fluid 15 U/L; Glucose,Pleural Fluid 105 MG/DL; LDH,Body Fluid 584 U/L; Total Protein,Body Fluid 3.8 G/DL
[2020-04-27] MEDS: buPROPion XL 150 MG TABLET PO SCH (11:57)
[2020-04-27 12:11] LABS: Lymphocytes,Pleural Fluid 82 %; Neutrophils,Pleural Fluid 18 %
[2020-04-27 12:12] LABS: RBC,Pleural Fluid 13146 T/CUMM
[2020-04-28] MEDS: ALBUTEROL/IPRATROPIUM 3 ML NEB RESP TX SCH ×4 (00:26→20:01)
[2020-04-28] MEDS: HYDROCORTISONE 100 MG VIAL IV SCH ×3 (02:10→18:05)
[2020-04-28 06:03] LABS: Eosinophils % 0.2 % (0.00-10.9); Hematocrit 32.8 VOL% (35.7-47.0); Hemoglobin 10.2 GM/DL (12.0-16.0); Immature Granulocytes % 0.5 %; Immature Granulocytes Absolute 0.05 #; Lymphocytes # 0.4 10*3/uL (1.4-4.0); Mean Corpuscular HGB Conc 31.1 GM/DL (32-36); Mean Platelet Volume 10.1 FL (9.6-12.0); Monocytes % 9.7 % (1.7-12.7); Neutrophils % 85.6 % (38.7-73.9); Platelet Count 310 T/CUMM (130-400); Red Blood Count 3.95 MC/CUMM (3.8-5.5); Red Cell Distribution Width 15.9 % (9.3-17.3); White Blood Count 9.7 T/CUMM (4-12)
[2020-04-28 06:11] LABS: Calcium 10.2 MG/DL (8.5-10.1)
[2020-04-28] MEDS ORDERED: ceFAZolin 1,000 MG in SYRINGE 1 EACH IV ONE (06:30)
[2020-04-28 06:31] LABS: Lymphocytes 5 % (20-55); Microcytosis Slight; Platelet Estimate Normal; Segmented Neutrophils 90 % (50-85); Total Cells Counted 100
[2020-04-28] MEDS: RANOLAZINE 500 MG TABLET PO SCH (09:35)
[2020-04-28] MEDS: SERTRALINE 25 MG TABLET PO SCH (09:35)
[2020-04-28] MEDS: buPROPion XL 150 MG TABLET PO SCH (09:35)
[2020-04-28] MEDS: GABAPENTIN 300 MG CAPSULE PO SCH (09:35)
[2020-04-28] MEDS: ROSUVASTATIN 20 MG TABLET PO SCH (09:35)
[2020-04-28] MEDS ORDERED: LIDOCAINE 2% 5 ML VIAL ONE ×2 (11:07→12:34)
[2020-04-28] MEDS ORDERED: fentaNYL 100 MCG/2 ML VIAL ONE (11:07)
[2020-04-28] MEDS ORDERED: propofoL 200 MG/20 ML VIAL IV ONE (11:07)
[2020-04-28] MEDS ORDERED: BUPIVACAINE SPINAL 0.75% 2 ML AMP SPINAL ONE (11:08)
[2020-04-28] MEDS ORDERED: DEXMEDETOMIDINE 200 MCG/2 ML VIAL ONE (11:08)
[2020-04-28] MEDS ORDERED: MORPHINE 4 MG/1 ML VIAL IV PRN ×2 (11:37)
[2020-04-28] MEDS ORDERED: MAGNESIUM HYDROXIDE SUSP 30 ML UDCUP PO PRN (11:37)
[2020-04-28] MEDS ORDERED: ONDANSETRON 4 MG/2 ML VIAL ONE (11:46)
[2020-04-28] MEDS ORDERED: ROCURONIUM 50 MG/5 ML VIAL IV ONE (11:46)
[2020-04-28] MEDS ORDERED: PHENYLEPHRINE 1 MG/10 ML SYRINGE IV ONE (12:04)
[2020-04-28] MEDS ORDERED: NEOSTIGMINE 10 MG/10 ML VIAL ONE (12:15)
[2020-04-28] MEDS ORDERED: GLYCOPYRROLATE 0.4 MG/2 ML VIAL ONE ×2 (12:15)
[2020-04-28] MEDS ORDERED: ROPIVACAINE 0.5% 30 ML VIAL ONE (12:34)
[2020-04-28] MEDS: ceFAZolin 1,000 MG in SYRINGE 1 EACH IV SCH ×2 (16:33→23:57)
[2020-04-28] MEDS: LACTATED RINGERS 1,000 ML IV SCH (16:37)
[2020-04-28] MEDS: DOCUSATE SODIUM 100 MG CAPSULE PO SCH (20:56)
[2020-04-29] MEDS: LACTATED RINGERS 1,000 ML IV SCH ×2 (02:52→16:11)
[2020-04-29] MEDS: HYDROCORTISONE 100 MG VIAL IV SCH ×3 (04:35→21:01)
[2020-04-29 06:11] LABS: Basophils % 0.2 % (0.0-0.8); Eosinophils % 0.4 % (0.00-10.9); Hematocrit 28.5 VOL% (35.7-47.0); Immature Granulocytes % 0.3 %; Immature Granulocytes Absolute 0.03 #; Lymphocytes # 0.4 10*3/uL (1.4-4.0); Lymphocytes % 4.4 % (21.3-54.2); Mean Corpuscular HGB Conc 31.6 GM/DL (32-36); Mean Corpuscular Volume 82.8 FL (87-102); Mean Platelet Volume 10.4 FL (9.6-12.0); Monocytes % 10.6 % (1.7-12.7); Neutrophils % 84.1 % (38.7-73.9); Platelet Count 260 T/CUMM (130-400); Red Blood Count 3.44 MC/CUMM (3.8-5.5); Red Cell Distribution Width 15.9 % (9.3-17.3); White Blood Count 9.6 T/CUMM (4-12)
[2020-04-29] MEDS: FONDAPARINUX 2.5 MG/0.5 ML SYRINGE SUBCUT SCH (06:24)
[2020-04-29 06:25] LABS: Calcium 9.9 MG/DL (8.5-10.1); Osmolality,Calculated 281.3 MOS/KG (273-304)
[2020-04-29 06:45] LABS: Hypochromasia 1+; Lymphocytes 3 % (20-55); Microcytosis Slight; Ovalocytes Slight; Platelet Estimate Adequate; Segmented Neutrophils 88 % (50-85); Total Cells Counted 100
[2020-04-29] MEDS: ALBUTEROL/IPRATROPIUM 3 ML NEB RESP TX SCH ×4 (07:13→21:09)
[2020-04-29] MEDS: DOCUSATE SODIUM 100 MG CAPSULE PO SCH ×2 (10:00→20:57)
[2020-04-29] MEDS: RANOLAZINE 500 MG TABLET PO SCH (10:00)
[2020-04-29] MEDS: ROSUVASTATIN 20 MG TABLET PO SCH (10:00)
[2020-04-29] MEDS: SERTRALINE 25 MG TABLET PO SCH (10:01)
[2020-04-29] MEDS: POTASSIUM CHLORIDE 10 MEQ TABLET PO SCH (10:01)
[2020-04-29] MEDS: buPROPion XL 150 MG TABLET PO SCH (10:02)
[2020-04-29] MEDS: GABAPENTIN 300 MG CAPSULE PO SCH (10:02)
[2020-04-29] MEDS: fentaNYL 25 MCG/HR PATCH TRANSDERM SCH (10:22)
[2020-04-30] MEDS: ALBUTEROL/IPRATROPIUM 3 ML NEB RESP TX SCH ×4 (01:54→19:36)
[2020-04-30] MEDS: HYDROCORTISONE 100 MG VIAL IV SCH ×3 (04:20→21:30)
[2020-04-30 05:54] LABS: Basophils % 0.1 % (0.0-0.8); Eosinophils % 0.3 % (0.00-10.9); Hematocrit 27.8 VOL% (35.7-47.0); Hemoglobin 8.9 GM/DL (12.0-16.0); Immature Granulocytes % 0.5 %; Immature Granulocytes Absolute 0.05 #; Lymphocytes # 0.5 10*3/uL (1.4-4.0); Lymphocytes % 5.7 % (21.3-54.2); Mean Corpuscular Volume 81.8 FL (87-102); Monocytes % 9.5 % (1.7-12.7); Neutrophils % 83.9 % (38.7-73.9); Platelet Count 267 T/CUMM (130-400); White Blood Count 9.1 T/CUMM (4-12)
[2020-04-30 06:10] LABS: Calcium 9.6 MG/DL (8.5-10.1); Osmolality,Calculated 280.5 MOS/KG (273-304)
[2020-04-30] MEDS: buPROPion XL 150 MG TABLET PO SCH (09:27)
[2020-04-30] MEDS: SERTRALINE 25 MG TABLET PO SCH (09:27)
[2020-04-30] MEDS: GABAPENTIN 300 MG CAPSULE PO SCH (09:27)
[2020-04-30] MEDS: POTASSIUM CHLORIDE 10 MEQ TABLET PO SCH (09:28)
[2020-04-30] MEDS: RANOLAZINE 500 MG TABLET PO SCH (09:28)
[2020-04-30] MEDS: ROSUVASTATIN 20 MG TABLET PO SCH (09:28)
[2020-04-30] MEDS: DOCUSATE SODIUM 100 MG CAPSULE PO SCH ×2 (09:28→21:26)
[2020-04-30] MEDS: LACTATED RINGERS 1,000 ML IV SCH ×2 (15:04→18:01)
[2020-05-01] MEDS: ALBUTEROL/IPRATROPIUM 3 ML NEB RESP TX SCH ×3 (01:14→19:42)
[2020-05-01] MEDS: HYDROCORTISONE 100 MG VIAL IV SCH ×3 (04:57→20:33)
[2020-05-01 05:55] LABS: Basophils % 0.1 % (0.0-0.8); Eosinophils % 0.1 % (0.00-10.9); Hematocrit 27.7 VOL% (35.7-47.0); Hemoglobin 8.8 GM/DL (12.0-16.0); Immature Granulocytes % 0.6 %; Immature Granulocytes Absolute 0.05 #; Lymphocytes # 0.5 10*3/uL (1.4-4.0); Lymphocytes % 5.7 % (21.3-54.2); Mean Corpuscular HGB Conc 31.8 GM/DL (32-36); Mean Platelet Volume 9.8 FL (9.6-12.0); Monocytes % 10.2 % (1.7-12.7); Neutrophils % 83.3 % (38.7-73.9); Platelet Count 285 T/CUMM (130-400); Red Blood Count 3.42 MC/CUMM (3.8-5.5); Red Cell Distribution Width 15.9 % (9.3-17.3)
[2020-05-01 06:07] LABS: Calcium 9.1 MG/DL (8.5-10.1); Osmolality,Calculated 284.3 MOS/KG (273-304)
[2020-05-01] MEDS: ROSUVASTATIN 20 MG TABLET PO SCH (09:20)
[2020-05-01] MEDS: SERTRALINE 25 MG TABLET PO SCH (09:20)
[2020-05-01] MEDS: DOCUSATE SODIUM 100 MG CAPSULE PO SCH ×2 (09:20→20:33)
[2020-05-01] MEDS: POTASSIUM CHLORIDE 10 MEQ TABLET PO SCH (09:20)
[2020-05-01] MEDS: RANOLAZINE 500 MG TABLET PO SCH (09:20)
[2020-05-01] MEDS: buPROPion XL 150 MG TABLET PO SCH (09:20)
[2020-05-01] MEDS: GABAPENTIN 300 MG CAPSULE PO SCH (09:20)
[2020-05-01] MEDS: LACTATED RINGERS 1,000 ML IV SCH (09:20)
[2020-05-01] MEDS ORDERED: AMMONIA INHALANT 1 EACH AMP INH ONE (13:50)
[2020-05-01 13:55] LABS: ABG HCO3 30.8 MMOL/L (20-26); ABG Oxygen Saturation 90.9 % (95-100); ABG PCO2 42.7 MM HG (35-48); ABG PH 7.474 (7.35-7.45); ABG PO2 57.5 MM HG (80-95)
[2020-05-01 14:23] LABS: Basophils % 0.1 % (0.0-0.8); Eosinophils % 0.4 % (0.00-10.9); Hematocrit 26.3 VOL% (35.7-47.0); Hemoglobin 8.2 GM/DL (12.0-16.0); Immature Granulocytes % 0.6 %; Immature Granulocytes Absolute 0.05 #; Lymphocytes # 0.5 10*3/uL (1.4-4.0); Lymphocytes % 6.3 % (21.3-54.2); Mean Corpuscular HGB Conc 31.2 GM/DL (32-36); Mean Corpuscular Volume 83.5 FL (87-102); Mean Platelet Volume 10.3 FL (9.6-12.0); Monocytes % 10.6 % (1.7-12.7); Platelet Count 281 T/CUMM (130-400); Red Blood Count 3.15 MC/CUMM (3.8-5.5); Red Cell Distribution Width 16.1 % (9.3-17.3); White Blood Count 7.8 T/CUMM (4-12)
[2020-05-01 14:33] LABS: ABG HCO3 30.9 MMOL/L (20-26); ABG Oxygen Saturation 94.3 % (95-100); ABG PH 7.495 (7.35-7.45); ABG PO2 70.3 MM HG (80-95); ABG TCO2 32.2 MMOL/L (23-27)
[2020-05-01 14:34] LABS: Alanine Aminotransferase 23 U/L (13-56); Albumin 1.7 G/DL (3.4-5.0); Alkaline Phosphatase 409 U/L (45-117); Aspartate Amino Transferase 39 U/L (0-37); Bilirubin,Total < 0.39 MG/DL (0.2-1.0); Blood Urea Nitrogen 13 MG/DL (7-18); Calcium 8.9 MG/DL (8.5-10.1); Estimated Glom Filtration Rate 80 ML/MIN; Glucose 170 MG/DL (74-106); Osmolality,Calculated 280.5 MOS/KG (273-304); Total Protein 5.7 G/DL (6.4-8.3)
[2020-05-01] MEDS ORDERED: NALOXONE 0.4 MG/ML VIAL IV ONE (14:45)
[2020-05-01] MEDS ORDERED: MAGNESIUM SULF RIDER 2 GM in PREMIX 1 EACH IV PRN (15:05)
[2020-05-01] MEDS ORDERED: POTASSIUM CHLORIDE RIDER 10 MEQ in PREMIX 1 EACH IV PRN (15:05)
[2020-05-01] MEDS ORDERED: MAGNESIUM SULF RIDER 4 GM in PREMIX 1 EACH IV PRN (15:05)
[2020-05-01] MEDS ORDERED: LACTULOSE 20 GM/30 ML UDCUP PO SCH (15:07)
[2020-05-01] MEDS: LACTULOSE 20 GM/30 ML UDCUP PO SCH (18:47)
[2020-05-02] MEDS: ALBUTEROL/IPRATROPIUM 3 ML NEB RESP TX SCH ×5 (01:03→19:32)
[2020-05-02] MEDS: LACTULOSE 20 GM/30 ML UDCUP PO SCH ×4 (01:58→22:35)
[2020-05-02 04:41] LABS: Basophils % 0.1 % (0.0-0.8); Eosinophils % 0.5 % (0.00-10.9); Hematocrit 27.9 VOL% (35.7-47.0); Hemoglobin 8.8 GM/DL (12.0-16.0); Immature Granulocytes % 0.5 %; Immature Granulocytes Absolute 0.04 #; Lymphocytes # 0.6 10*3/uL (1.4-4.0); Mean Corpuscular HGB Conc 31.5 GM/DL (32-36); Mean Corpuscular Volume 82.5 FL (87-102); Mean Platelet Volume 9.7 FL (9.6-12.0); Monocytes % 9.6 % (1.7-12.7); Neutrophils % 82.3 % (38.7-73.9); Platelet Count 308 T/CUMM (130-400); Red Blood Count 3.38 MC/CUMM (3.8-5.5); Red Cell Distribution Width 16.2 % (9.3-17.3); White Blood Count 7.8 T/CUMM (4-12)
[2020-05-02] MEDS: HYDROCORTISONE 100 MG VIAL IV SCH (04:45)
[2020-05-02 05:04] LABS: Calcium 9.3 MG/DL (8.5-10.1); Osmolality,Calculated 282.3 MOS/KG (273-304)
[2020-05-02] MEDS: buPROPion XL 150 MG TABLET PO SCH (08:56)
[2020-05-02] MEDS: ROSUVASTATIN 20 MG TABLET PO SCH (08:56)
[2020-05-02] MEDS: RANOLAZINE 500 MG TABLET PO SCH (08:57)
[2020-05-02] MEDS: SERTRALINE 25 MG TABLET PO SCH (08:57)
[2020-05-02] MEDS: POTASSIUM CHLORIDE 10 MEQ TABLET PO SCH (08:57)
[2020-05-02] MEDS: DOCUSATE SODIUM 100 MG CAPSULE PO SCH ×2 (08:57→20:54)
[2020-05-02] MEDS: POTASSIUM CHLORIDE 20 MEQ TABLET PO PRN ×3 (08:57→17:57)
[2020-05-02] MEDS: INSULIN LISPRO 100 UNIT/ML SUBCUT SCH ×3 (11:45→20:52)
[2020-05-02] MEDS: ONDANSETRON 4 MG/2 ML VIAL IV PRN (18:04)
[2020-05-03] MEDS: ALBUTEROL/IPRATROPIUM 3 ML NEB RESP TX SCH ×4 (00:30→20:00)
[2020-05-03] MEDS: FONDAPARINUX 2.5 MG/0.5 ML SYRINGE SUBCUT SCH (05:33)
[2020-05-03 05:58] LABS: Calcium 9.4 MG/DL (8.5-10.1); Osmolality,Calculated 274.5 MOS/KG (273-304)
[2020-05-03 05:59] LABS: Basophils % 0.1 % (0.0-0.8); Eosinophils % 0.4 % (0.00-10.9); Hematocrit 28.7 VOL% (35.7-47.0); Hemoglobin 9.3 GM/DL (12.0-16.0); Immature Granulocytes % 0.6 %; Immature Granulocytes Absolute 0.05 #; Lymphocytes # 0.5 10*3/uL (1.4-4.0); Mean Corpuscular HGB Conc 32.4 GM/DL (32-36); Mean Corpuscular Volume 81.3 FL (87-102); Monocytes % 12.2 % (1.7-12.7); Neutrophils % 80.7 % (38.7-73.9); Platelet Count 322 T/CUMM (130-400); Red Blood Count 3.53 MC/CUMM (3.8-5.5); Red Cell Distribution Width 16.3 % (9.3-17.3); White Blood Count 8.5 T/CUMM (4-12)
[2020-05-03] MEDS: ACETAMINOPHEN 325 MG TABLET PO PRN (06:01)
[2020-05-03] MEDS: INSULIN LISPRO 100 UNIT/ML SUBCUT SCH ×4 (07:51→21:20)
[2020-05-03] MEDS: LACTULOSE 20 GM/30 ML UDCUP PO SCH ×2 (09:20→16:30)
[2020-05-03] MEDS: POTASSIUM CHLORIDE 20 MEQ TABLET PO PRN ×4 (09:20→16:30)
[2020-05-03] MEDS: POTASSIUM CHLORIDE 10 MEQ TABLET PO SCH (09:20)
[2020-05-03] MEDS: DOCUSATE SODIUM 100 MG CAPSULE PO SCH ×2 (09:20→21:30)
[2020-05-03] MEDS: amLODIPine 5 MG TABLET PO SCH (09:20)
[2020-05-03] MEDS: ROSUVASTATIN 20 MG TABLET PO SCH (09:20)
[2020-05-03] MEDS: RANOLAZINE 500 MG TABLET PO SCH (09:20)
[2020-05-03] MEDS: SERTRALINE 25 MG TABLET PO SCH (09:21)
[2020-05-03] MEDS: buPROPion XL 150 MG TABLET PO SCH (11:09)
[2020-05-04] MEDS: POTASSIUM CHLORIDE 20 MEQ TABLET PO PRN ×3 (01:14→05:55)
[2020-05-04] MEDS: ALBUTEROL/IPRATROPIUM 3 ML NEB RESP TX SCH ×4 (01:14→19:49)
[2020-05-04] MEDS: LACTULOSE 20 GM/30 ML UDCUP PO SCH ×3 (01:14→16:42)
[2020-05-04] MEDS: ACETAMINOPHEN 325 MG TABLET PO PRN (03:29)
[2020-05-04] MEDS: ONDANSETRON 4 MG/2 ML VIAL IV PRN (03:30)
[2020-05-04] MEDS: FONDAPARINUX 2.5 MG/0.5 ML SYRINGE SUBCUT SCH (05:31)
[2020-05-04 06:21] LABS: Basophils % 0.1 % (0.0-0.8); Eosinophils % 0.1 % (0.00-10.9); Hematocrit 28.3 VOL% (35.7-47.0); Hemoglobin 9.3 GM/DL (12.0-16.0); Immature Granulocytes % 0.4 %; Immature Granulocytes Absolute 0.04 #; Lymphocytes # 0.6 10*3/uL (1.4-4.0); Lymphocytes % 6.2 % (21.3-54.2); Mean Corpuscular HGB Conc 32.9 GM/DL (32-36); Mean Corpuscular Volume 79.7 FL (87-102); Mean Platelet Volume 9.6 FL (9.6-12.0); Monocytes % 10.4 % (1.7-12.7); Neutrophils % 82.8 % (38.7-73.9); Platelet Count 336 T/CUMM (130-400); Red Blood Count 3.55 MC/CUMM (3.8-5.5); Red Cell Distribution Width 16.5 % (9.3-17.3); White Blood Count 9.7 T/CUMM (4-12)
[2020-05-04 06:41] LABS: Calcium 9.5 MG/DL (8.5-10.1); Osmolality,Calculated 272.7 MOS/KG (273-304)
[2020-05-04] MEDS: amLODIPine 5 MG TABLET PO SCH (10:30)
[2020-05-04] MEDS: buPROPion XL 150 MG TABLET PO SCH (10:30)
[2020-05-04] MEDS: POTASSIUM CHLORIDE 20 MEQ TABLET PO SCH (10:31)
[2020-05-04] MEDS: RANOLAZINE 500 MG TABLET PO SCH (10:31)
[2020-05-04] MEDS: SERTRALINE 25 MG TABLET PO SCH (10:31)
[2020-05-04] MEDS: DOCUSATE SODIUM 100 MG CAPSULE PO SCH ×2 (10:31→22:26)
[2020-05-04] MEDS: ROSUVASTATIN 20 MG TABLET PO SCH (10:31)
[2020-05-04] MEDS: INSULIN LISPRO 100 UNIT/ML SUBCUT SCH ×4 (10:42→22:30)
[2020-05-04] MEDS: POTASSIUM CHLORIDE 10 MEQ TABLET PO SCH (10:42)
[2020-05-04] MEDS ORDERED: TAMSULOSIN 0.4 MG CAPSULE PO SCH (21:00)
[2020-05-05] MEDS: LACTULOSE 20 GM/30 ML UDCUP PO SCH ×2 (00:42→07:22)
[2020-05-05] MEDS: ALBUTEROL/IPRATROPIUM 3 ML NEB RESP TX SCH ×2 (01:53→07:36)
[2020-05-05 05:49] LABS: Basophils % 0.1 % (0.0-0.8); Eosinophils % 0.2 % (0.00-10.9); Hematocrit 30.7 VOL% (35.7-47.0); Hemoglobin 9.8 GM/DL (12.0-16.0); Immature Granulocytes % 0.9 %; Immature Granulocytes Absolute 0.08 #; Lymphocytes # 0.6 10*3/uL (1.4-4.0); Lymphocytes % 5.9 % (21.3-54.2); Mean Corpuscular HGB Conc 31.9 GM/DL (32-36); Mean Corpuscular Volume 80.4 FL (87-102); Mean Platelet Volume 9.7 FL (9.6-12.0); Neutrophils % 82.9 % (38.7-73.9); Platelet Count 354 T/CUMM (130-400); Red Blood Count 3.82 MC/CUMM (3.8-5.5); Red Cell Distribution Width 16.5 % (9.3-17.3); White Blood Count 9.3 T/CUMM (4-12)
[2020-05-05 06:12] LABS: Calcium 9.8 MG/DL (8.5-10.1); Osmolality,Calculated 268.1 MOS/KG (273-304)
[2020-05-05] MEDS: FONDAPARINUX 2.5 MG/0.5 ML SYRINGE SUBCUT SCH (06:40)
[2020-05-05] MEDS: INSULIN LISPRO 100 UNIT/ML SUBCUT SCH ×2 (07:32→11:58)
[2020-05-05] MEDS: ACETAMINOPHEN 325 MG TABLET PO PRN (07:54)
[2020-05-05] MEDS: buPROPion XL 150 MG TABLET PO SCH (09:15)
[2020-05-05] MEDS: ROSUVASTATIN 20 MG TABLET PO SCH (09:15)
[2020-05-05] MEDS: RANOLAZINE 500 MG TABLET PO SCH (09:15)
[2020-05-05] MEDS: SERTRALINE 25 MG TABLET PO SCH (09:16)
[2020-05-05] MEDS: DOCUSATE SODIUM 100 MG CAPSULE PO SCH (09:16)
[2020-05-05] MEDS: POTASSIUM CHLORIDE 20 MEQ TABLET PO SCH (09:16)
[2020-05-05] MEDS: amLODIPine 5 MG TABLET PO SCH (09:16)
[2020-05-05] MEDS: POTASSIUM CHLORIDE 10 MEQ TABLET PO SCH (09:46)
[2020-05-05 11:15] VITALS: BP 135/88
[2020-05-05] MEDS ORDERED: INFLUENZA VIRUS VACCINE 0.5 ML SYRINGE IM ONE (11:43)
[2020-05-05] MEDS ORDERED: POLYETHYLENE GLYCOL POWDER 17 GM PACK PO SCH (21:00)
[2020-05-06] MEDS ORDERED: LINACLOTIDE 145 MCG CAPSULE PO SCH (07:30)
== END 2020-05-05 12:06 | DRG 480 ==
LOC: EDBD → EDUNIT# → N.ED 00:18 → N.EDINP 02:41 → SUATTDRO 02:41 → N.3E 03:06 → N.ICU 05-01 14:12 → N.3E 05-01 14:22 → N.ICU 05-01 14:26 → N.3E 05-02 12:47
PROVIDERS: ADMIT Hospitalist; ATTEND Hospitalist